=== PATIENT | male | born 1940 | race American Indian/Alaskan Native ===

== ENCOUNTER 2024-01-23 12:07 | Observation (INO) | payer OTHER, MEDICARE, SELFPAY ==
[2024-01-23] VITALS (26 sets, daily range): BP systolic 117–142; BP diastolic 80–98; PULSE 89–149; RESP 16–36; TEMP 36.8; O2SAT 85–100; BMI 24.5
--- NOTE | 2024-01-23 12:08 | ECG_ITS ---
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 Measurements Intervals [place] Rate: 136 P: 0 [place]: 0 QRS: -40 QRSD: 126 T: 150 QT: 301 QTc: 454 Interpretive Statements ATRIAL FIBRILLATION WITH RAPID VENTRICULAR RESPONSE LEFT AXIS DEVIATION [QRS AXIS < -30] POSSIBLE RIGHT VENTRICULAR CONDUCTION DELAY [RSR (QR) IN V1/V2] ST DEVIATION AND MODERATE T-WAVE ABNORMALITY, CONSIDER ANTEROLATERAL ISCHEMIA [-0.1+ mV T-WAVE IN V3-V6] No previous ECG available for comparison Electronically Signed On 01-24-2024 01:22:14 CDT by Lalo Garrido M.D. [id number] f
--- NOTE | 2024-01-23 12:08 | ECG_ITS ---
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 Measurements Intervals [place] Rate: 136 P: 0 [place]: 0 QRS: -40 QRSD: 126 T: 150 QT: 301 QTc: 454 Interpretive Statements ATRIAL FIBRILLATION WITH RAPID VENTRICULAR RESPONSE LEFT AXIS DEVIATION [QRS AXIS < -30] POSSIBLE RIGHT VENTRICULAR CONDUCTION DELAY [RSR (QR) IN V1/V2] ST DEVIATION AND MODERATE T-WAVE ABNORMALITY, CONSIDER ANTEROLATERAL ISCHEMIA [-0.1+ mV T-WAVE IN V3-V6] No previous ECG available for comparison Electronically Signed On 01-24-2024 01:22:08 CDT by Lalo Garrido M.D. [id number] f
--- NOTE | 2024-01-23 12:40 | XRR_ITS ---
PROCEDURE INFORMATION: Exam: XR Chest Exam date and time: 01/23/2024 12:42 PM Age: 83 years old Clinical indication: Pain; Angina pectoris; Additional info: Chest pain TECHNIQUE: Imaging protocol: Radiologic exam of the chest. Views: 1 view. COMPARISON: No relevant prior studies available. FINDINGS: Tubes, catheters and devices: Left sided cardiac pacemaker leads in satisfactory position. Lungs: Bibasilar atelectasis. No focal consolidation. Pleural spaces: No sizable pleural effusion or pneumothorax. Heart/Mediastinum: No cardiomegaly. Bones/joints: Unremarkable. XR/XR chest 1V portable [id number] IMPRESSION: No acute intrathoracic findings.
[2024-01-23 13:00] LABS: Basophils # 0.1 10^3/uL (0.0-0.1); Basophils % 0.7 %; Eosinophils # 0.1 10^3/uL (0.0-0.8); Eosinophils % 1.7 %; Lymphocytes # 1.2 10^3/uL (0.8-4.8); Lymphocytes % 16.7 %; Mean Corpuscular HGB Conc 33.1 g/dL (30-55); Mean Corpuscular Hemoglobin 31.8 pg (27-33); Mean Corpuscular Volume 96.2 fl (82-101); Mean Platelet Volume 10.7 fL (7.4-10.4); Monocytes # 0.6 10^3/uL (0.2-0.9); Monocytes % 8.9 %; Neutrophils # 5.01 10^3/uL (1.8-7.7); Neutrophils % 71.7 %; Nucleated Red Blood Cells % 0 %; Platelet Count 287 10^3/cmm (157-399); Red Blood Count 4.68 10^6/uL (3.85-5.65); Red Cell Distribution Width 13.5 % (12.1-15.1); White Blood Count 6.99 10^3/uL (3.29-11.43)
[2024-01-23 13:14] LABS: Alanine Aminotransferase 17 U/L (0-41); Albumin Level 3.8 g/dL (3.5-5.2); Alkaline Phosphatase 65 U/L (40-130); Aspartate Amino Transferase 18 U/L (0-40); Blood Urea Nitrogen 19 mg/dL (8-23); Calcium 8.4 mg/dL (8.5-10.5); Carbon Dioxide 24 mmol/L (22-29); Chloride 106 mmol/L (98-107); Creatinine Clr Calc Pharmacy 48.6603; Globulin 2.5 g/dL (1.3-4.6); Glucose 151 mg/dL (65-115); Osmolality Calculated 299 mOsm/kg (285-295); Sodium 142 mmol/L (136-145); Total Bilirubin 1.2 mg/dL (0.15-1.2); Total Protein 6.3 g/dL (6.6-8.7)
[2024-01-23 13:15] LABS: Anion Gap 16.3 (5-19); Potassium 4.3 mmol/L (3.5-5.1)
--- NOTE | 2024-01-23 13:28 | PC.PHAR ---
patient is [facility]. Last 4 digits of social is [phone]
[2024-01-23 13:39] LABS: Troponin(5th) Baseline 14 ng/L (0-15)
--- NOTE | 2024-01-23 13:56 | ED_ITS ---
HPI - Chest Pain 2 General: Chief Complaint: Chest Pain Stated Complaint: CHEST PAIN Time Seen by Provider: 01/23/24 13:15 History of Present Illness: 83-year-old male presents to the emergen cy room from the clinic. He has a known history of A-fib with RVR he previously been sotalol for a number of years that was stopped and he was changed to digoxin and bisoprolol. He thought he was having side effects from those so we stopped the second medications a couple of weeks ago. He went into the clinic today and was having atrial fibrillation with rapid ventricular response intermittently when he did any activity such as a trial walking he began to have significant increase in his heart rate. He is on Eliquis. Nurses notes that he was having chest pain he did not relate any chest pain to me and just the intermittent rapid heart rate. Associated symptoms: Reports palpitations; Deny abdominal pain, dyspnea or fever(s) Related Data Home Medications Medication Instructions Recorded Confirmed apixaban 5 mg tablet 5 mg PO BID 01/23/24 01/23/24 aspirin 81 mg tablet,delayed 81 mg PO DAILY 01/23/24 01/23/24 release bisoprolol fumarate 5 mg tablet 5 mg PO DAILY 01/23/24 01/23/24 clotrimazole 1 % topical solution 1 applic topical TID 01/23/24 01/23/24 digoxin 125 mcg (0.125 mg) tablet 125 mcg PO DAILY 01/23/24 01/23/24 fluticasone 250 mcg-salmeterol 50 1 inh inhalation BID 01/23/24 01/23/24 mcg/dose blistr powdr for inhalation levothyroxine 75 mcg tablet 75 mcg PO DAILY 01/23/24 01/23/24 miconazole nitrate 2 % topical 1 spray topical BID 01/23/24 01/23/24 spray powder sotalol 80 mg tablet 80 mg PO BID 01/23/24 01/23/24 vitamin A 2,400 mcg capsule 2,400 mcg PO DAILY 01/23/24 01/23/24 zinc oxide 1 applic topical TID 01/23/24 01/23/24 Review of Systems 2 Const: Denies: fever(s) or chills Card: Reports: chest pain, palpitations and irregular heart rhythm Resp: Denies: dyspnea GI: Denies: abdominal pain : Denies: dysuria, urinary frequency or urinary urgency Musc: Denies: neck pain or back pain Skin/Breast: Denies: rash Physical Exam 2 Const: COMMON NORMALS: no acute distress GENERAL APPEARANCE: cooperative and comfortable ORIENTATION/CONSCIOUSNESS: Yes awake, Yes oriented to person, Yes oriented to place and Yes oriented to time HENMT: COMMON NORMALS: normocephalic, atraumatic and hearing grossly normal bilaterally HEAD & SCALP: normocephalic and atraumatic Resp: COMMON NORMALS: normal respiratory effort, No retractions, No use of accessory muscles and clear to auscultation bilaterally AUSCULTATION: clear to auscultation bilaterally Cardio: COMMON NORMALS: regular rate, regular rhythm and No murmurs present (Cardio) RATE: regular rate RHYTHM: regular rhythm GI: COMMON NORMALS: Soft to palpation and No hepatosplenomegaly present A USCULTATION: Yes normoactive bowel sounds PALPATION: Yes Soft to palpation, No Tenderness to palpation present (GI), No Guarding due to palpation present (GI) and Yes No hepatosplenomegaly present Extremity: COMMON NORMALS: normal to inspection, capillary refill normal, no clubbing, cyanosis or edema, no calf tenderness and no pedal edema Neuro: SENSORIUM/ORIENTATION: Yes oriented to person, Yes oriented to place and Yes oriented to time Skin: COMMON NORMALS: no rashes or lesions noted GENERAL SKIN EXAM: no rashes or lesions noted Course 2 Vital Signs: Vital signs: Vital Signs Temperature 98.2 F 01/23/24 12:12 Pulse Rate 115 H 01/23/24 14:23 Respiratory Rate 18 01/23/24 12:12 Blood Pressure 134/85 01/23/24 14:52 Pulse Oximetry 98 01/23/24 14:23 Oxygen Delivery Me thod Room Air 01/23/24 14:23 MDM - Chest Pain Medical Decision Making A-fib with RVR intermittently with rate control poor. He is stopped all of his rate control medications he does have a pacer in place right now at rest he will have varying rates from 100 at times nearly 230 reported to the clinic with ambulation his heart rate was up and sustained [address] on observation to reinitiate medication for rate control discussed with hospitalist orders written Medical Records I reviewed the patient's medical records. Lab Data I reviewed the patient's lab results. 01/23/24 12:17 01/23/24 12:17 Radiology Impressions Chest X-Ray 01/23/24 12:40 IMPRESSION: No acute intrathoracic findings. Laboratory Results WBC 6.99 10^3/uL (3.29-11.43) 01/23/24 12:17 RBC 4.68 10^6/uL (3.85-5.65) 01/23/24 12:17 Hgb 14.90 g/dL (11.27-16.99) 01/23/24 12:17 Hct 45.0 % (37-53) 01/23/24 12:17 MCV 96.2 fl (82-101) 01/23/24 12:17 MCH 31.8 pg (27-33) 01/23/24 12:17 MCHC 33.1 g/dL (30-55) 01/23/24 12:17 RDW 13.5 % (12.1-15.1) 01/23/24 12:17 Plt Count 287 10^3/cmm (157-399) 01/23/24 12:17 MPV 10.7 fL (7.4-10.4) H 01/23/24 12:17 Neut % (Auto) 71.7 % 01/23/24 12:17 Lymph % (Auto) 16.7 % 01/23/24 12:17 Archer % (Auto) 8.9 % 01/23/24 12:17 Eos % (Auto) 1.7 % 01/23/24 12:17 Baso % (Auto) 0.7 % 01/23/24 12:17 Neut # (Auto) 5.01 10^3/uL (1.8-7.7) 01/23/24 12:17 Lymph # (Auto) 1.2 10^3/uL (0.8-4.8) 01/23/24 12:17 Archer # (Auto) 0.6 10^3/uL (0.2-0.9) 01/23/24 12:17 Eos # (Auto) 0.1 10^3/uL (0.0-0.8) 01/23/24 12:17 Baso # (Auto) 0.1 10^3/uL (0.0-0.1) 01/23/24 12:17 Nucleated RBC % (auto) 0 % 01/23/24 12:17 Nucleated RBCs # 0.0 /100WBC 01/23/24 12:17 Sodium 142 mmol/L (136-145) 01/23/24 12:17 Potassium 4.3 mmol/L (3.5-5.1) 01/23/24 12:17 Chloride 106 mmol/L (98-107) 01/23/24 12:17 Carbon Dioxide 24 mmol/L (22-29) 01/23/24 12:17 Anion Gap 16.3 (5-19) 01/23/24 12:17 BUN 19 mg/dL (8-23) 01/23/24 12:17 Creatinine 1.0 mg/dL (0.7-1.2) 01/23/24 12:17 GFR Calculation Not Reportable 01/23/24 12:17 Glucose 151 mg/dL (65-115) H 01/23/24 12:17 Calculated Osmolality 299 mOsm/kg (285-295) H 01/23/24 12:17 Calcium 8.4 mg/dL (8.5-10.5) L 01/23/24 12:17 Total Bilirubin 1.2 mg/dL (0.15-1.2) 01/23/24 12:17 AST 18 U/L (0-40) 01/23/24 12:17 ALT 17 U/L (0-41) 01/23/24 12:17 Alkaline Phosphatase 65 U/L (40-130) 01/23/24 12:17 Troponin T Baseline 14 ng/L (0-15) 01/23/24 12:17 Troponin T 120 Minute 13.93 ng/L (0-15) 01/23/24 14:22 Delta Troponin T -0.07 ABS# (0-10) L 01/23/24 14:22 NT-Pro-B Natriuret Pep 2132 pg/mL (0-450) H 01/23/24 12:17 Total Protein 6.3 g/dL (6.6-8.7) L 01/23/24 12:17 Albumin 3.8 g/dL (3.5-5.2) 01/23/24 12:17 Globulin 2.5 g/dL (1.3-4.6) 01/23/24 12:17 Digoxin 0.3 ng/mL (0.6-1.2) L 01/23/24 14:22 All radiology interpretation(s) finalized by discharge Discharge Plan Discharge Patient Disposition: Admitted As Inpatient Clinical Impression: Atrial fibrillation with RVR Condition: Stable Prescriptions: No Action fluticasone propion-salmeterol 250-50 mcg/dose Blister With Device 1 inh INHALATION BID vitamin A 2,400 mcg Capsule 2,400 mcg PO DAILY miconazole nitrate 2 % Aerosol Powder 1 spray TOPICAL BID sotalol 80 mg Tablet 80 mg PO BID aspirin [Aspir-81] 81 mg Tablet,Delayed Release (Dr/Ec) 81 mg PO DAILY levothyroxine 75 mcg Tablet 75 mcg PO DAILY bisoprolol fumarate 5 mg Tablet 5 mg PO DAILY clotrimazole 1 % Solution 1 applic TOPICAL TID digoxin 125 mcg (0.125 mg) Tablet 125 mcg PO DAILY zinc oxide Ointment 1 applic TOPICAL TID apixaban 5 mg Tablet 5 mg PO BID Referrals: Heaven Olivares MD [Primary Care Provider] - Coding Level of Care Code ED Ware Carrier for Chg Selena
[2024-01-23 14:48] LABS: Digoxin 0.3 ng/mL (0.6-1.2)
[2024-01-23 14:50] LABS: Troponin 5 2HR 13.93 ng/L (0-15)
[2024-01-23 14:53] LABS: Troponin 5 2HR Delta -0.07 ABS# (0-10)
[2024-01-23 14:59] LABS: NT Pro B Type Natriuretic Pept 2132 pg/mL (0-450)
--- NOTE | 2024-01-23 15:26 | ECG_ITS ---
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 Measurements Intervals [place] Rate: 123 P: 0 MD: 0 QRS: -38 QRSD: 121 T: 150 QT: 325 QTc: 466 Interpretive Statements ATRIAL FIBRILLATION WITH RAPID VENTRICULAR RESPONSE WITH ABERRANT CONDUCTION OR VENTRICULAR PREMATURE COMPLEXES LEFT AXIS DEVIATION [QRS AXIS < -30] POSSIBLE RIGHT VENTRICULAR CONDUCTION DELAY [RSR (QR) IN V1/V2] MODERATE T-WAVE ABNORMALITY, CONSIDER ANTEROLATERAL ISCHEMIA [-0.1+ mV T-WAVE IN V3-V6] Compared to ECG 01/23/2024 12:08:29 Ventricular premature complex(es) now present Aberrant conduction of supraventricular beat(s) now present T-wave abnormality still present Possible ischemia still present Electronically Signed On 01-24-2024 01:36:14 CDT by Lalo Garrido M.D. [email or web address]issippi[facility].[employer]/store/OM/[id number]
--- NOTE | 2024-01-23 15:30 | CTR_ITS ---
PROCEDURE INFORMATION: Exam: CT Chest Without Contrast; Diagnostic Exam date and time: 01/23/2024 3:57 PM Age: 83 years old Clinical indication: Shortness of breath; Prior surgery; Surgery date: 6+ months; Surgery type: Pacer; Additional info: SOB, cough, TECHNIQUE: Imaging protocol: Diagnostic computed tomography of the chest without contrast. Radiation optimization: All CT scans at this facility use at least one of these dose optimization techniques: automated exposure control; mA and/or kV adjustment per patient size (includes targeted exams where dose is matched to clinical indication); or iterative reconstruction. COMPARISON: CR XR chest 1V portable [id number] 01/23/2024 12:42 PM RADIATION DOSE METRICS: Total DLP (mGy-cm): 371 FINDINGS: Tubes, catheters and devices: Left subclavian pacemaker in position. Lungs: Bibasal atelectasis and scarring. Emphysematous changes predominantly in the upper lobes. Pleural spaces: No pleural effusion or pneumothorax noted. Heart: There is mild cardiomegaly. There is no pericardial effusion. Coronary arteries: Mild coronary arterial calcification, indicating the presence of coronary artery disease. Lymph nodes: Prominent but not enlarged mediastinal nodes. These may be reactive. Vasculature: There is no aortic aneurysm. There is atherosclerotic disease. Liver: limited evaluation of the upper abdomen demonstrates a 28 x 25 mm hypodensity in the left lobe of the liver which may represent a cyst or hemangioma. Bones/joints: No acute osseous abnormality. There is mild degenerative disease of the spine. Soft tissues: Unremarkable. CT/CT chest con [id number] IMPRESSION: 1. Bibasal atelectasis and scarring. 2. Mild coronary arterial calcification, indicating the presence of coronary artery disease. If the patient has associated symptoms recommend management as per chest pain guidelines. If the patient is asymptomatic consider reviewing modifiable cardiovascular risk factors and managing as per guidelines for primary prevention.
--- NOTE | 2024-01-23 15:32 | PM.HP ---
Providers/Chief Complaint Primary Care Provider: Heaven Olivares MD Chief Complaint: CHEST PAIN History of Present Illness Jeremias López is a 83 year old male with a past medical history of COPD, history of atrial fibrillation on Eliquis therapy, with plans on ablation therapy in 1 month, hyper tension, hypothyroidism, who presents [facility] due to a week history of shortness of breath, cough, fatigue, malaise. Patient tells me that for the last week, he has been feeling well, complaining of a productive cough, fatigue, malaise, shortness of breath, he has stopped his medications such as digoxin, sotalol a few weeks ago as he was concerned about side effects. Patient persistently had a cough, shortness of breath, so he presented to his primary care provider had an EKG done which showed A-fib with RVR so he was advised to come to the hospital for further evaluation. Currently denies active chest pain, denies any active shortness of breath his complaint is fatigue, malaise, cough. Review of Systems Const: Reports: fatigue and malaise; Denies: fever(s) or chills Card: Reports: palpitations; Denies: chest pain Resp: Reports: dyspnea and non-productive cough GI: Denies: abdominal pain, nausea or vomiting : Denies: flank pain or difficulty urinating Skin/Breast: Denies: rash Neuro: Denies: headache(s), numbness in extremities or weakness in extremities Endo: Denies: polyuria or polydipsia Medications/Allergies Home Medications Medication Instructions Recorded Confirmed Last Taken Type apixaban 5 mg tablet 5 mg PO BID 01/23/24 01/23/24 Unknown History aspirin 81 mg tablet,delayed 81 mg PO DAILY 01/23/24 01/23/24 Unknown History release bisoprolol fumarate 5 mg tablet 5 mg PO DAILY 01/23/24 01/23/24 Unknown History clotrimazole 1 % topical solution 1 applic topical TID 01/23/24 01/23/24 Unknown History digoxin 125 mcg (0.125 mg) tablet 125 mcg PO DAILY 01/23/24 01/23/24 Unknown History fluticasone 250 mcg-salmeterol 50 1 inh inhalation BID 01/23/24 01/23/24 Unknown History mcg/dose blistr powdr for inhalation levothyroxine 75 mcg tablet 75 mcg PO DAILY 01/23/24 01/23/24 Unknown History miconazole nitrate 2 % topical 1 spray topical BID 01/23/24 01/23/24 Unknown History spray powder sotalol 80 mg tablet 80 mg PO BID 01/23/24 01/23/24 Unknown History vitamin A 2,400 mcg capsule 2,400 mcg PO DAILY 01/23/24 01/23/24 Unknown History zinc oxide 1 applic topical TID 01/23/24 01/23/24 Unknown History PFSH Acute PFSH: Medical History (Updated 01/23/24 @ 15:37 by Dru Putnam MD) History of hypothyroidism History of COPD History of atrial fibrillation Surgical History (Updated 01/23/24 @ 15:36 by Dru Putnam MD) History of implantable cardiac defibrillator (ICD) Family History Other No pertinent family history Social History (Updated 01/23/24 @ 15:36 by Dru Putnam MD) Smoking and tobacco/nicotine status: former use of tobacco/nicotine Alcohol intake: never Substance/Drug Use: never Vitals/I&O/Wt Last Vital Signs Temp 98.2 F 01/23/24 12:12 Pulse 121 H 01/23/24 15:17 Resp 16 01/23/24 15:17 BP 118/88 01/23/24 15:17 Pulse Ox 98 01/23/24 15:17 O2 Del Method Room Air 01/23/24 14:23 Weight last 48 hrs Weight 64.864 kg Physical Exam Const: COMMON NORMALS: no acute distress and patient oriented x3 HENMT: COMMON NORMALS: normocephalic HEAD & SCALP: normocephalic Eye: COMMON NORMALS: Equal, round and reactive pupils present Neck/C-Spine: COMMON NORMALS: no JVD Lymph: LYMPHATIC: no lymphadenopathy noted Resp: COMMON NORMALS: normal respiratory effort, No retractions and No use of accessory muscles AUSCULTATION: crackles and wheezes Cardio: COMMON NORMALS: regular rate, regular rhythm, S1 normal heart sound present and S2 normal heart sound present RATE: tachycardic RHYTHM: abnormal rhythm HEART SOUNDS: S1 normal heart sound present and S2 normal heart sound present GI: COMMON NORMALS: Normal to inspection, nondistended, normoactive bowel sounds present, Soft to palpation and non-tender : COMMON NORMALS: Yes no CVA tenderness Extremity: COMMON NORMALS: no calf tenderness and no pedal edema Neuro: COMMON NORMALS: patient oriented x3, CN's II-XII intact bilaterally and moves all extremities Psych: COMMON NORMALS: mental status grossly normal Data 01/23/24 12:17 01/23/24 12:17 A&P Assessment and plan (1) Atrial fibrillation with RVR: (2) Shortness of breath: Plan Shortness of breath -Possibly CHF exacerbation, BNP 2100 -Does have complaints of cough, fatigue, malaise Plan -Pro-Kirit, CRP, blood cultures, respiratory viral panel, CT of the chest -1 dose IV Lasix 40 mg -Monitor respiratory status closely A-fib and RVR -Currently heart rates in the low 100s -Try metoprolol 25 twice daily -Continue Eliquis -Cardiac echo -Telemetry monitoring, serial EKGs, serial troponins, monitoring Full code Eliquis for DVT prophylaxis Attestations Medical Necessity Statement*: Patient requires hospitalization, inpatient, greater than 2 midnights for CHF exacerbation, A-fib Diagnoses Atrial fibrillation with RVR I48.91 Shortness of breath R06.02
[2024-01-23 15:49] LABS: Estmated Average Glucose 117; Hemoglobin A1C 5.7 % (4.0-6.0)
[2024-01-23 15:58] LABS: C Reactive Protein 101.9 mg/L (0.0-4.9)
[2024-01-23 16:05] LABS: Procalcitonin 0.08 ng/mL (0-0.5)
[2024-01-23] MEDS: FUROsemide 10 mg/mL SDV 4mL 40 MG IVP (18:18)
[2024-01-23] MEDS: metoprolol tartrate 25 mg Tablet PO (18:19)
[2024-01-23] MEDS: pantoprazole 40 mg SDV IVP (18:19)
[2024-01-23] MEDS: apixaban 5 mg Tablet PO (18:19)
[2024-01-23 18:31] LABS: Chol HDL Ratio 3.81 mg/dL (1.0-5.00); Cholesterol 164 mg/dL (0-200); HDL Cholesterol 43 mg/dL (60-100); LDL Cholesterol Calculated 106 mg/dL (50-129); LDL HDL Ratio 2.47 RATIO (0.00-3.22); Triglycerides 77 mg/dL (0-150)
[2024-01-23 19:40] LABS: Troponin 5 6HR 19.17 ng/L (0-15); Troponin 5 6HR Delta 5.17 ng/L (0-12)
--- NOTE | 2024-01-23 21:51 | ECG_ITS ---
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1940 Requested By: Dg Summers Order Number: [id number] Reading MD: GONZALES ASKEW Measurements Intervals [place] Rate: 110 P: 0 DE: 0 QRS: 40 QRSD: 132 T: -89 QT: 374 QTc: 506 Interpretive Statements ATRIAL FIBRILLATION WITH RAPID VENTRICULAR RESPONSE WITH ABERRANT CONDUCTION OR VENTRICULAR PREMATURE COMPLEXES INTRAVENTRICULAR CONDUCTION DELAY [130+ ms QRS DURATION] Compared to ECG 01/23/2024 15:26:52 Intraventricular conduction delay now present Left-axis deviation no longer present T-wave abnormality no longer present Possible ischemia no longer present Electronically Signed On 01-25-2024 20:14:33 CDT by GONZALES ASKEW [email or web address]/store/OM/[id number]
[2024-01-24] VITALS (9 sets, daily range): BP systolic 114–116; BP diastolic 80–93; PULSE 99–112; RESP 16–22; TEMP 36.5–36.8; O2SAT 95–99
[2024-01-24 00:05] LABS: Covid PCR NEGATIVE (Negative); Influenza A NEGATIVE (Negative); Influenza B NEGATIVE (Negative); Respiratory Syncytial Virus Ce NEGATIVE (Negative)
[2024-01-24 03:50] LABS: Bilirubin Urine Negative (Negative); Blood Urine Negative (Negative); Glucose Urine UA Negative (Normal); Ketones Urine Negative (Negative); Leukocyte Esterase Urine Negative (Negative); Nitrate Urine Negative (Negative); Protein Urine Negative (Negative); Specific Gravity, Urine 1.007 (1.005-1.030); Urine Appearance Clear (CLEAR); Urine Color Yellow (Yellow); pH Urine 5.5 (5-7)
[2024-01-24 03:55] LABS: Add Urine Microscopic? YES; Bacteria Urine None Seen /hpf; Hyaline Casts Urine 0-4 /lpf; RBC Urine 0-2 /hpf (0-2); Squamous Epithelial Cell Urine 0-5 /hpf (0-5); WBC Urine 0-5 /hpf (0-5)
[2024-01-24 04:32] LABS: Basophils # 0.1 10^3/uL (0.0-0.1); Basophils % 0.8 %; Eosinophils # 0.3 10^3/uL (0.0-0.8); Eosinophils % 3.4 %; Hematocrit 44.7 % (37-53); Lymphocytes # 1.7 10^3/uL (0.8-4.8); Lymphocytes % 21.8 %; Mean Corpuscular HGB Conc 32.2 g/dL (30-55); Mean Corpuscular Hemoglobin 31.7 pg (27-33); Mean Corpuscular Volume 98.5 fl (82-101); Mean Platelet Volume 10.1 fL (7.4-10.4); Monocytes % 12.2 %; Neutrophils # 4.85 10^3/uL (1.8-7.7); Neutrophils % 61.5 %; Nucleated Red Blood Cells % 0 %; Platelet Count 316 10^3/cmm (157-399); Red Blood Count 4.54 10^6/uL (3.85-5.65); Red Cell Distribution Width 13.2 % (12.1-15.1); White Blood Count 7.88 10^3/uL (3.29-11.43)
[2024-01-24 04:50] LABS: Anion Gap 15.6 (5-19); Blood Urea Nitrogen 24 mg/dL (8-23); Calcium 8.5 mg/dL (8.5-10.5); Carbon Dioxide 26 mmol/L (22-29); Chloride 99 mmol/L (98-107); Creatinine Clr Calc Pharmacy 44.4977; Glucose 98 mg/dL (65-115); Magnesium 1.9 mg/dL (1.7-2.3); Osmolality Calculated 286 mOsm/kg (285-295); Potassium 4.6 mmol/L (3.5-5.1); Sodium 136 mmol/L (136-145)
[2024-01-24 05:04] LABS: NT Pro B Type Natriuretic Pept 2783 pg/mL (0-450)
[2024-01-24] MEDS: metoprolol tartrate 25 mg Tablet PO (06:09)
[2024-01-24] MEDS: aspirin 81 mg EC Tablet PO (07:54)
[2024-01-24] MEDS: levothyroxine 75 mcg Tablet PO (07:54)
[2024-01-24] MEDS: apixaban 5 mg Tablet PO (07:55)
--- NOTE | 2024-01-24 10:11 | PC.CHAP ---
Pastoral Care Encounter/Spiritual Assessment Type of Contact [] Declined federal judicial law clerk visit [] Patient/Family/Request visit [] Outpatient visit [] Follow-up visit [] Physician referral [] Code/Alert [x] Routine visit [] Staff referral [] Actively dying [] Patient sleeping [] Family support [] [] Out of room [] Palliative care [] [] Receiving care in room [] Pre-surgical visit [] Trauma [] Long length of stay [] ICU visit [] Other: Relational/Emotional Strength [x] Patient feels connected with others/family/visitors/staff [] Distress [] Loneliness/isolation [] Abandonment Spirituality of Patient [x] Person of Maddi [] Attends Spiritism of their Maddi [x] Believes in Prayer [] Reads Bible or Adventist materials [] There are Spiritual issues to be addressed Skin Fitter Interventions [x] Prayer [x] Active listening [] Non-anxious presence [x] Spiritual/emotional support [] Crisis/trauma care [] Spiritual counseling [] Bereavement support [] Provided bereavement packet [] Provided Bible/devotional materials [] Provided toy/stuffed animal, coloring book to patient or family member [] Provided Communion [] Anointing/[place] [] Salvation [x] Completed spiritual assessment [] Other: Impact on Illness or Injury [] Angry [] Fearful [] Anxious [] Often cries [] Exhaustion [] Unable to work [] Unable to attend orthodox [] Unable to walk/stand [] Unable to read [] Unable to drive [] Unable to eat/drink [] Unable to sleep [] Unable to be with family [] Patient intubated [] Other: Summary Time spent with patient 5 min
--- NOTE | 2024-01-24 11:05 | P.DS_ITS ---
Discharge Providers Date of Admission: 01/23/24 16:33 Date of Discharge: January 24, 2024 Attending Provider at Admission: Dru Putnam MD Attending Provider at Discharge: Dru Putnam MD Primary Care Provider: Heaven Olivares MD Diagnoses at Discharge Discharge Diagnosis (1) Atrial fibrillation with RVR: Status: Acute (2) Shortness of breath: Status: Acute Reason for Visit Reason for Visit: CHEST PAIN Hospital Course Hospital Course Jeremias López is a 83 year old male with a past medical history of COPD, history of atrial fibrillation on Eliquis therapy, with plans on ablation therapy in 1 month, hyper tension, hypothyroidism, who presents [facility] due to a week history of shortness of breath, cough, fatigue, malaise. Patient tells me that for the last week, he has been feeling well, complaining of a productive cough, fatigue, malaise, shortness of breath, he has stopped his medications such as digoxin, sotalol a few weeks ago as he was concerned about side effects. Patient persistently had a cough, shortness of breath, so he presented to his primary care provider had an EKG done which showed A-fib with RVR so he was advised to come to the hospital for further evaluation. Currently denies active chest pain, denies any active shortness of breath his complaint is fatigue, malaise, cough. Patient was admitted to [facility] for shortness of breath secondary to CHF exacerbation, with A-fib with RVR. Patient was monitored as inpatient received Lasix therapy, beta-armaan therapy and clinically monitored. The morning of 01/24/2024, patient was seen, his shortness of breath had improved, he was on room air, heart rates do increase to the 120s with exertion, but quickly improved to 100 at baseline, atrial fibrillation his underlying rhythm. Patient was adamant about going home, discussed morbidity and mortality associated with A-fib with RVR, CHF, I believe that we need better titration of his heart rates, his CHF, his CRP is also over 100, although his CT chest does not show any focal pneumonia, will need to monitor him as inpatient, follow his blood cultures, his inflammatory markers to see if anything presents itself. No significant leukocytosis, and he denies currently any productive cough,. Nonetheless I had a detailed discussion with him about continued inpatient monitoring further titration of his heart rates, his shortness of breath for his CHF, monitoring his inflammatory markers, monitoring for other source of infection given his elevated CRP. However patient was adamant about going home, discussed morbidity and mortality associated with conditions as above, he voiced understanding, all questions answered, adamant about going home. He also declined cardiac echocardiogram. Will discharge him on metoprolol 25 twice daily, with a close follow-up with his primary care provider as outpatient. Patient was advised if he has any chest pain or shortness of breath to immediately go to the emergency room. He also has a outpatient cardiac ablation procedure scheduled, for his A- fib, follow-up with his agricultural engineer recommended. Physical Exam Const: COMMON NORMALS: no acute distress and patient oriented x3 Resp: COMMON NORMALS: normal respiratory effort, No retractions, No use of accessory muscles and clear to auscultation bilaterally AUSCULTATION: clear to auscultation bilaterally Cardio: COMMON NORMALS: regular rate, regular rhythm, S1 normal heart sound present and S2 normal heart sound present RATE: regular rate and tachycardic RHYTHM: regular rhythm HEART SOUNDS: S1 normal heart sound present and S2 normal heart sound present GI: COMMON NORMALS: Normal to inspection, nondistended, normoactive bowel sounds present and non-tender Extremity: COMMON NORMALS: no pedal edema Neuro: COMMON NORMALS: patient oriented x3 Psych: COMMON NORMALS: mental status grossly normal Discharge Data Studies Completed and Pending Completed Studies During Hospitalization Category Date Time Status CT chest wo con [id number] Stat Cat Scan 01/23/24 15:30 Completed XR chest 1V portable [id number] Stat Exams 01/23/24 12:40 Completed Pending at discharge Category Date Time Status Basic Metabolic Panel AM LABS Lab 01/25/24 04:00 Ordered Basic Metabolic Panel AM LABS Lab 01/26/24 04:00 Ordered Blood Culture Routine Lab 01/23/24 19:05 Results Complete Blood Count w/Auto AM LABS Lab 01/25/24 04:00 Ordered Complete Blood Count w/Auto AM LABS Lab 01/26/24 04:00 Ordered Magnesium AM LABS Lab 01/25/24 04:00 Ordered Magnesium AM LABS Lab 01/26/24 04:00 Ordered Radiology Impressions Chest X-Ray 01/23/24 12:40 IMPRESSION: No acute intrathoracic findings. Chest CT 01/23/24 15:30 IMPRESSION: 1. Bibasal atelectasis and scarring. 2. Mild coronary arterial calcification, indicating the presence of coronary artery disease. If the patient has associated symptoms recommend management as per chest pain guidelines. If the patient is asymptomatic consider reviewing modifiable cardiovascular risk factors and managing as per guidelines for primary prevention. Laboratory Results WBC 7.88 10^3/uL (3.29-11.43) 01/24/24 03:54 RBC 4.54 10^6/uL (3.85-5.65) 01/24/24 03:54 Hgb 14.40 g/dL (11.27-16.99) 01/24/24 03:54 Hct 44.7 % (37-53) 01/24/24 03:54 MCV 98.5 fl (82-101) 01/24/24 03:54 MCH 31.7 pg (27-33) 01/24/24 03:54 MCHC 32.2 g/dL (30-55) 01/24/24 03:54 RDW 13.2 % (12.1-15.1) 01/24/24 03:54 Plt Count 316 10^3/cmm (157-399) 01/24/24 03:54 MPV 10.1 fL (7.4-10.4) 01/24/24 03:54 Neut % (Auto) 61.5 % 01/24/24 03:54 Lymph % (Auto) 21.8 % 01/24/24 03:54 [place] % (Auto) 12.2 % 01/24/24 03:54 Eos % (Auto) 3.4 % 01/24/24 03:54 Baso % (Auto) 0.8 % 01/24/24 03:54 Neut # (Auto) 4.85 10^3/uL (1.8-7.7) 01/24/24 03:54 Lymph # (Auto) 1.7 10^3/uL (0.8-4.8) 01/24/24 03:54 [place] # (Auto) 1.0 10^3/uL (0.2-0.9) H 01/24/24 03:54 Eos # (Auto) 0.3 10^3/uL (0.0-0.8) 01/24/24 03:54 Baso # (Auto) 0.1 10^3/uL (0.0-0.1) 01/24/24 03:54 Nucleated RBC % (auto) 0 % 01/24/24 03:54 Nucleated RBCs # 0.0 /100WBC 01/24/24 03:54 Sodium 136 mmol/L (136-145) 01/24/24 03:54 Potassium 4.6 mmol/L (3.5-5.1) 01/24/24 03:54 Chloride 99 mmol/L (98-107) 01/24/24 03:54 Carbon Dioxide 26 mmol/L (22-29) 01/24/24 03:54 Anion Gap 15.6 (5-19) 01/24/24 03:54 BUN 24 mg/dL (8-23) H 01/24/24 03:54 Creatinine 1.1 mg/dL (0.7-1.2) 01/24/24 03:54 GFR Calculation Not Reportable 01/24/24 03:54 Glucose 98 mg/dL (65-115) 01/24/24 03:54 Estimat Average Glucose 117 01/23/24 12:17 Hemoglobin A1c 5.7 % (4.0-6.0) 01/23/24 12:17 Calculated Osmolality 286 mOsm/kg (285-295) 01/24/24 03:54 Calcium 8.5 mg/dL (8.5-10.5) 01/24/24 03:54 Magnesium 1.9 mg/dL (1.7-2.3) 01/24/24 03:54 Total Bilirubin 1.2 mg/dL (0.15-1.2) 01/23/24 12:17 AST 18 U/L (0-40) 01/23/24 12:17 ALT 17 U/L (0-41) 01/23/24 12:17 Alkaline Phosphatase 65 U/L (40-130) 01/23/24 12:17 Troponin T Baseline 14 ng/L (0-15) 01/23/24 12:17 Troponin T 120 Minute 13.93 ng/L (0-15) 01/23/24 14:22 Delta Troponin T -0.07 ABS# (0-10) L 01/23/24 14:22 Troponin T Hi Sens 6Hr 19.17 ng/L (0-15) H 01/23/24 18:57 Troponin T Hi Sens 6Hr Delta 5.17 ng/L (0-12) 01/23/24 18:57 C-Reactive Protein 101.9 mg/L (0.0-4.9) H 01/23/24 12:17 NT-Pro-B Natriuret Pep 2783 pg/mL (0-450) H 01/24/24 03:54 Total Protein 6.3 g/dL (6.6-8.7) L 01/23/24 12:17 Albumin 3.8 g/dL (3.5-5.2) 01/23/24 12:17 Globulin 2.5 g/dL (1.3-4.6) 01/23/24 12:17 Triglycerides 77 mg/dL (0-150) 01/23/24 12:17 Cholesterol 164 mg/dL (0-200) 01/23/24 12:17 LDL Cholesterol, Calc 106 mg/dL (50-129) 01/23/24 12:17 HDL Cholesterol 43 mg/dL (60-100) L 01/23/24 12:17 LDL/HDL Ratio 2.47 RATIO (0.00-3.22) 01/23/24 12:17 Cholesterol/HDL Ratio 3.81 mg/dL (1.0-5.00) 01/23/24 12:17 Procalcitonin 0.08 ng/mL (0-0.5) 01/23/24 12:17 TSH 2.80 uIU/mL (0.27-4.20) 01/23/24 12:17 Urine Color Yellow (Yellow) 01/24/24 03:30 Urine Appearance Clear (CLEAR) 01/24/24 03:30 Urine pH 5.5 (5-7) 01/24/24 03:30 Ur Specific [place] 1.007 (1.005-1.030) 01/24/24 03:30 Urine Protein Negative (Negative) 01/24/24 03:30 Urine Glucose (UA) Negative (Normal) 01/24/24 03:30 Urine Ketones Negative (Negative) 01/24/24 03:30 Urine Blood Negative (Negative) 01/24/24 03:30 Urine Nitrate Negative (Negative) 01/24/24 03:30 Urine Bilirubin Negative (Negative) 01/24/24 03:30 Urine Urobilinogen 1.0 mg/dL (Negative) 01/24/24 03:30 Ur Leukocyte Esterase Negative (Negative) 01/24/24 03:30 Urine RBC 0-2 /hpf (0-2) 01/24/24 03:30 Urine WBC 0-5 /hpf (0-5) 01/24/24 03:30 Ur Squamous Epith Cells 0-5 /hpf (0-5) 01/24/24 03:30 Amorphous Sediment Not Reportable 01/24/24 03:30 Urine Bacteria None seen /hpf (NONE) 01/24/24 03:30 Hyaline Casts 0-4 /lpf H 01/24/24 03:30 Digoxin 0.3 ng/mL (0.6-1.2) L 01/23/24 14:22 Coronavirus (PCR) Negative (Negative) 01/23/24 23:00 Influenza A (PCR) Negative (Negative) 01/23/24 23:00 Influenza Type B (PCR) Negative (Negative) 01/23/24 23:00 RSV (PCR) Negative (Negative) 01/23/24 23:00 Vitals Last Vital Signs Temp 98.2 F 01/24/24 07:22 Pulse 103 H 01/24/24 07:22 Resp 18 01/24/24 07:22 BP 114/93 01/24/24 07:22 Pulse Ox 97 01/24/24 07:22 O2 Del Method Room Air 01/24/24 07:22 Discharge Plan Discharge Patient Disposition: Home Condition: Stable Prescriptions: New magnesium L-lactate 84 mg tablet extended release 84 mg PO DAILY 30 Days Qty: 30 0RF metoprolol tartrate 25 mg Tablet 25 mg PO Q12H 30 Days Qty: 60 0RF Continued fluticasone propion-salmeterol 250-50 mcg/dose Blister With Device 1 inh INHALATION BID vitamin A 2,400 mcg Capsule 2,400 mcg PO DAILY miconazole nitrate 2 % Aerosol Powder 1 spray TOPICAL BID aspirin [Aspir-81] 81 mg Tablet,Delayed Release (Dr/Ec) 81 mg PO DAILY levothyroxine 75 mcg Tablet 75 mcg PO DAILY clotrimazole 1 % Solution 1 applic TOPICAL TID zinc oxide Ointment 1 applic TOPICAL TID apixaban 5 mg Tablet 5 mg PO BID tamsulosin 0.4 mg Capsule 0.4 mg PO BEDTIME Discontinued sotalol 80 mg Tablet 80 mg PO BID bisoprolol fumarate 5 mg Tablet 5 mg PO DAILY digoxin 125 mcg (0.125 mg) Tablet 125 mcg PO DAILY Discharge Orders: Discharge Order (Routine); Ordered 01/24/24 Ordered By: Dru Putnam Referrals: Heaven Olivares MD [Primary Care Provider] - 02/01/24 12:30 pm Discharge Diet: Cardiac Discharge Activity: Resume usual activity Patient Instructions: A-fib (Atrial Fibrillation) (DC), Dyspnea (DC), Opioid Safety Activity Restrictions/Additional Instructions: - Please follow-up with your primary care provider in the next week -If you have any recurrent chest pain or palpitations go to emergency room Discharge Attestations Time Spent in Discharge Care*: greater than 30 min Quality Metrics Clinical Quality Measures [ No reported AMI, CVA or VTE this stay] Coding Level of Care Code 38090 Total time (in minutes) for Discharge: 45 Diagnoses Atrial fibrillation with RVR I48.91 Shortness of breath R06.02
--- NOTE | 2024-01-24 11:06 | PC.NURSE ---
aicd/pacemaker interrogated pt though refused his us echocardiogram. Dr hong.
--- NOTE | 2024-01-24 11:41 | PC.NURSE ---
Discharge Note Patient discharged to home via wheelchair accompanied by reimbursement counselor Jim to bring him to [place] [facility] in [place] since pt vehicle is there. Discharge instructions reviewed with patient and/or customer development representative. Mobile pharmacy medications and/or prescriptions provided. Belongings/home medications returned.
== END 2024-01-24 11:39 | disposition home or self-care (01) ==
LOC: ER 15:05 → CSU 19:46
PROVIDERS: Admitting Provider Family Medicine; Emergency Provider Family Medicine; PCP Family Medicine; Visit Provider Family Medicine
DX: I48.91 Unspecified atrial fibrillation (principal); R06.02 Shortness of breath; J44.9 Chronic obstructive pulmonary disease, unspecified; Z79.01 Long term (current) use of anticoagulants; I10 Essential (primary) hypertension; E03.9 Hypothyroidism, unspecified; Z79.82 Long term (current) use of aspirin; Z87.891 Personal history of nicotine dependence; Z95.0 Presence of cardiac pacemaker
CPT/HCPCS: 0241U; 36415; 71045; 71250; 80048; 80053; 80061; 80162; 81001; 83036; 83735; 83880; 84145; 84443; 84484; 85025; 86140; 87040; 93005; 94664; 96374; 96375; 96376; 97110; 99285; G0378; J1940; J2470